=== PATIENT | male | born 1980 | race Hispanic/Latino ===

== ENCOUNTER 2022-08-16 08:13 | Emergency (ER) | payer OTHER, BC ==
[~2022-08-16] VITALS: Ht 175.3 cm; Wt 110.0 kg
[2022-08-16 10:30] VITALS: BP 120/80
== END 2022-08-16 10:32 | disposition home or self-care (01) | DRG 563 ==
LOC: ED 08:13
DX: S62.511A Displaced fracture of proximal phalanx of right thumb, initial encounter for closed fracture (principal); E66.8 Other obesity; V49.40XA Driver injured in collision with unspecified motor vehicles in traffic accident, initial encounter